=== PATIENT | female | born 1995 | race Caucasian/White ===

== ENCOUNTER 2018-11-16 00:04 | Emergency (ER) | payer OTHER ==
[~2018-11-16] VITALS: Ht 177.8 cm; Wt 63.6 kg
[2018-11-16 00:05] VITALS: TEMP 97.2
[2018-11-16] MEDS ORDERED: ZOLOFT 50MG50 MG PO (00:07)
[2018-11-16 02:37] VITALS: BP 107/54; PULSE 98
== END 2018-11-16 02:41 | disposition home or self-care (01) ==
LOC: COL.ER 00:04
PROVIDERS: Nurse Practitioner
DX: S09.90XA Unspecified injury of head, initial encounter (principal); F10.129 Alcohol abuse with intoxication, unspecified; W19.XXXA Unspecified fall, initial encounter; W22.8XXA Striking against or struck by other objects, initial encounter
CPT/HCPCS: J2405; J7030